=== PATIENT | female | born 1930 | race Two or more races ===

== ENCOUNTER → 2018-12-25 | Outpatient (CLI) | payer MEDICARE, MEDICAID ==
[~2018-12-25] MED LIST: OMNIPAQUE 350 MG/ML, 100ML BOTTLE ONE
== END | disposition home or self-care (01) ==
LOC: CFH 08:08
PROVIDERS: ATTEND Internal Medicine Hematology & Oncology
DX: K57.30 Diverticulosis of large intestine without perforation or abscess without bleeding (principal); I71.4 Abdominal aortic aneurysm, without rupture; M47.816 Spondylosis without myelopathy or radiculopathy, lumbar region; M19.019 Primary osteoarthritis, unspecified shoulder
CPT/HCPCS: 71260; 74177; Q9967

== ENCOUNTER → 2019-07-10 | Outpatient (CLI) | payer MEDICARE, MEDICAID | END | disposition home or self-care (01) | LOC: CFH 09:09 | PROVIDERS: ATTEND Internal Medicine Hematology & Oncology | DX: C82.05 Follicular lymphoma grade I, lymph nodes of inguinal region and lower limb (principal); C82.3 Follicular lymphoma grade IIIa; M85.88 Other specified disorders of bone density and structure, other site; I25.10 Atherosclerotic heart disease of native coronary artery without angina pectoris; I70.0 Atherosclerosis of aorta; M47.819 Spondylosis without myelopathy or radiculopathy, site unspecified; M40.294 Other kyphosis, thoracic region | CPT/HCPCS: 71260; 74177; 82565; Q9967 ==